=== PATIENT | female | born 1955 | race Caucasian/White ===

== ENCOUNTER 2020-07-12 17:44 | Outpatient (CLI) | payer BC, SELFPAY | END 2020-07-12 17:45 | disposition home or self-care (01) | LOC: CHSLAB 17:47 | PROVIDERS: PCP Internal Medicine; Visit Provider Specialist | DX: C44.319 Basal cell carcinoma of skin of other parts of face (principal) | CPT/HCPCS: 88305 ==

== ENCOUNTER 2020-09-14 09:38 | Outpatient (CLI) | payer BC, SELFPAY ==
--- NOTE | ~2020-09-14 | MM_ITS ---
EXAMINATION: MM screening [facility] BI w epifanio HISTORY: Screening mammogram TECHNIQUE: Craniocaudal and mediolateral oblique 3-D tomosynthesis images were obtained and synthetic 2-D images were generated. CAD analysis was submitted and interpreted. COMPARISON: 02/04/2018, 09/21/2016 BREAST PARENCHYMAL COMPOSITION: The breasts are almost entirely fatty. FINDINGS: There is no evidence of suspicious mass, calcification, or architectural distortion to sugg est malignancy in either breast. There has been no suspicious interval change. IMPRESSION: 1. No mammographic evidence of malignancy. 2. Recommend routine screening mammography in one year. BI-RADS Category 1: Negative Reviewed, dictated and finalized at location A. NG SPREADER
== END 2020-09-14 09:39 | disposition home or self-care (01) ==
LOC: ANHIMG 09:41
PROVIDERS: PCP Internal Medicine; Visit Provider Obstetrics & Gynecology
DX: Z12.31 Encounter for screening mammogram for malignant neoplasm of breast (principal)
CPT/HCPCS: 77063; 77067

== ENCOUNTER 2021-07-31 14:55 | Outpatient (CLI) | payer BC, SELFPAY ==
[2021-07-31 15:49] LABS: Anion Gap 9 mmol/L (8-16); Blood Urea Nitrogen 15 mg/dL (7-17); Calcium 9.5 mg/dL (8.4-10.2); Carbon Dioxide 28 mmol/L (22-30); Chloride 102 mmol/L (98-107); Estimated Glomerular Filt Rate 56; Glucose 100 mg/dL (65-110); Potassium 3.8 mmol/L (3.4-5.0); Sodium 139 mmol/L (137-145)
== END 2021-07-31 14:56 | disposition home or self-care (01) ==
LOC: ANHSURGERY 15:00
PROVIDERS: Anesthesiology; PCP Internal Medicine; Visit Provider Plastic Surgery
DX: I10 Essential (primary) hypertension (principal)
CPT/HCPCS: 36415; 80048

== ENCOUNTER 2021-08-02 01:35 | Day surgery (SDC) | payer BC, SELFPAY ==
[2021-07-31 12:51] VITALS: BMI 29.2
--- NOTE | 2021-07-31 12:56 | PC.NURSE ---
Report to the Outpatient Waiting Room, entrance under the green pavilion located off [facility], at time _0600 on date __08/02/21 . OR Time: 729 . - You and your visitor will be asked a series of questions to screen for COVID 19 for your protection. - A mask is required within the hospital. - Only one visitor is allowed at this time. Patient visitors will be guided where to wait when not with patient. Preoperative COVID Testing Requirements: No COVID Test needed if: (proof is required; if not received patient will have Rapid Test prior to entry) - Patient has received COVID Vaccine at least 14 days prior to procedure date or - Patient has positive COVID test result within last 90 days of surgery date. COVID Test needed if above criteria is not met If not COVID vaccinated a COVID test must be conducted within 72 hours of surgery and patient is asked to isolate self from time of testing until procedure. You will go to the [facility] [facility] for your COVID testing. The [facility] [employer] [facility] site is located at the corner of [address] from [facility]. You will only be called if COVID results are positive and your surgeon may reschedule your elective surgery date. Patients may have clear liquids (water, carbonated beverages, clear teas, apple juice) until 3 hours prior to surgery with a maximum of 20 ounces. - No food from midnight until time of surgery - Infants may have breast milk until 4 hours before surgery, infant formula 6 hours prior to surgery. - Children will be allowed to drink immediately following surgery. If applicable, please bring a bottle or sippy cup to assist with drinking. Juice, water, soda, and popsicles are readily available. For infants on formula, please bring formula the day of surgery. Pacifiers are allowed. Take the following medications with a SIP of water the morning of surgery: ____SERTRALINE Medications to discontinue per physician _ALL VITAMINS AND SUPPLEMENTS 3 DAYS PRE OP Date to take last dose Please no make-up, nail maori, hairspray, perfume, deodorant, or body powder the day of surgery. No jewelry (including any body piercings) or valuables the day of surgery, leave them at home. Please take a shower or bath the night before, or the morning of, surgery with an antibacterial soap. Wear comfortable, loose fitting clothing. Children are encouraged to wear pajamas. - Jewelry must be removed prior to entering the operating room. Rings and piercings that are not removed may be cut off. - The hospital will not accept responsibility for valuables. - Please leave all valuables, including medications, at home the day of surgery. If you are going home after surgery, a licensed regional company hazmat tanker driver must drive you home. - NO public transportation without another adult. - We recommend that an adult stay with you for 24 hours following discharge. - We also recommend that you do not drive, make important decision, drink alcoholic beverages, or take any drugs that were not prescribed by your health care provider for at least 24 hours after your discharge time. For Pediatric surgeries, we recommend two adults accompany the child home (only one inside the building at this time). Follow any additional instructions given to you from your surgeon. Telephone instructions given to __PATIENT and asked if any additional questions and then verbalized understanding. Patient advised to call surgeon office or pre surgery nurse liaison [phone] if any additional questions.
[2021-08-02 06:37] VITALS: BP 136/68; PULSE 55; RESP 16; TEMP 36.6; O2SAT 100
[2021-08-02] MEDS: LACTATED RINGERS 1,000 ML 30 ML IV CONT (06:49)
--- NOTE | 2021-08-02 06:55 | WPDANESEPPF ---
Anes - Initial Pre Proc Eval Procedure: Operation Date: 08/02/21 07:30 Proposed Procedures p Right Open Carpal Tunnel Release, - Darron Mcintosh MD s Excision Cyst Right Zygoma - Darron Mcintosh MD Date/Time: 08/02/21 06:55 Surgeon: Darron Mcintosh MD Pre Op Diagnosis: right carpal tunnel syndrome,cyst rt zygoma Patient Data Age: 66 Gender: F Height: 1.6 m Weight: 75.5 kg Last Vital Signs Temp 36.6 C 08/02/21 06:37 Pulse 55 L 08/02/21 06:37 Resp 16 08/02/21 06:37 BP 136/68 08/02/21 06:37 Pulse Ox 100 08/02/21 06:37 Allergies Allergy/AdvReac Type Severity Reaction Status Date / Time ampicillin Allergy Mild Rash Verified 08/02/21 06:27 cephalexin Allergy Mild Rash Verified 08/02/21 06:27 hepatitis B virus vaccine Allergy Mild Rash Verified 08/02/21 06:27 Home Medications Medication Instructions Recorded Confirmed Type albuterol sulfate 90 mcg/actuation 2 inh INHALATION Q4-6H PRN #18 g 11/25/20 08/02/21 Rx aerosol inhaler cyanocobalamin (vitamin B-12) See Rx Instructions .ROUTE 02/16/21 08/02/21 Rx 1,000 mcg/mL injection solution .COMPLEX #1 milliliter ergocalciferol (vitamin D2) 1,250 50,000 unit PO WEEKLY #13 cap 03/10/21 08/02/21 Rx mcg (50,000 unit) capsule sertraline 25 mg tablet 25 mg PO DAILY #90 tablet 04/23/21 08/02/21 Rx atorvastatin 20 mg tablet 20 mg PO DAILY #90 tablet 05/26/21 08/02/21 Rx bisoprolol 10 1 tablet PO DAILY #30 tablet 05/26/21 08/02/21 Rx mg-hydrochlorothiazide 6.25 mg tablet needle (disp) 25 gauge 25 gauge x #30 each 07/19/21 Rx 1 1/2 Patient hx anesthesia problems: none Family hx anesthesia problems: none Results Review: All pre-operative results and documents have been reviewed as part of the pre-operative evaluation. [facility] Past Medical History Medical History (Updated 03/14/21 @ 16:20 by Edwin Mcelroy MD) High cholesterol Hypertension Surgical History Surgical History H/O basal cell carcinoma excision History of section Family History Family History Sibling Hypertension Father Patient's father is Diabetes mellitus Family history of hypercholesterolemia Hypertension Cerebrovascular accident Social History Social History Smoking packs per day: 1 Smoking cigarettes per day: 20.0 Years smoked: 9 Smoking pack-years: 9.00 Smoking status: Former smoker Tobacco type: cigarettes Second hand tobacco smoke exposure: No Smoking end date: 08/12/81 Alcohol intake: current Drinks per week: 6 Substance use: never Living arrangements: with family Spiritual care concerns: No Anes - Eval Final PreProcedure Day of Procedure 08/02/21 06:55 Patient weight: obese Heart: regular rate and rhythm Lungs: clear to auscultation Airway: Mallampati scale class II Neurological: alert and oriented Last oral intake: >/= 8 hours ASA classification: II Emergent: no Anesthetic plan: proceed Anesthesia type and monitoring: general GIVS and standard monitoring Results Review: All pre-operative results and documents have been reviewed as part of the pre-operative evaluation. Informed Consent: The patient's anesthetic plan and its attendant risks and benefits were discussed with the patient/family/POA. Questions were solicited and answers provided to the satisfaction of the patient/family/POA.
--- NOTE | 2021-08-02 07:17 | WPDHPUPDATE1 ---
History and Physical Update Update Date/Time: 08/02/21 07:17 History and Physical has been reviewed, including an updated exam of the patient. There are NO changes in the patient's condition. Risks, benefits, and alternatives have been discussed and questions answered. Patient agrees to proceed with procedure.
[2021-08-02] MEDS: LIDO 1%/EPINEPHRINE 1:100,000 50 ML VIAL 30 ML INFILTRATE (08:10)
[2021-08-02] MEDS: BACITRACIN OINTMENT 15 GM TUBE 1 APPLIC TOPICAL (08:11)
[2021-08-02] MEDS: BALANCED SALT SOLN OPHTH IRRIG 30 ML BTL RIGHT EYE (08:15)
[2021-08-02 08:22] VITALS: BP 147/77; PULSE 65; RESP 10; O2SAT 93
--- NOTE | 2021-08-02 08:39 | W.PM.PROC2 ---
Procedure Note - Detailed Date of Procedure 08/02/21 Pre-op Diagnosis right carpal tunnel syndrome,cyst rt zygoma Post-op Diagnosis other (R Carpal Tunnel Syndrome. Subcutaneous mass of the right zygoma.) Procedure Performed Right open carpal tunnel release. 1.5 cm excision of subcutaneous mass of the right zygoma with intermediate repair 2 cm Surgeon Darron Mcintosh MD Anesthesia MAC Findings The firm multilobulated subcutaneous mass from right zygoma was sent for permanent section Description of Procedure The 2 sites were marked on the patient as she waited in the holding area. She was taken to the operating room and placed supine on the operating table. The right upper extremity was prepped on the hand table.The face was also prepped and draped in usual fashion. Patient was given IV sedation. Time-out was held and confirmed. Two sites were locally infiltrated with 1% lidocaine with epinephrine. The tourniquet was utilized to 250 mmHg. The incision was made as marked and dissection was carried bluntly through the subcutaneous tissue to the palmar aponeurosis. This and the the transverse retinaculum was incised with the 15 blade opening the canal. Under 3 point retraction the ligament was divided distally and proximally for complete release of the canal. No unusual anatomy was noted. The skin was closed with interrupted 5 0 nylon suture. A small bandage applied as usual and the tourniquet was released after 8 minutes. Attention was turned to right cheek. This area was carefully examined and by bimanual compression I located what appeared to be a dermal attachment perhaps a punctum. The incision was marked around that. This area was excised through a an oval incision. The subcutaneous mass was identified. It did not appear to be cystic. It appeared somewhat silvery and multi lobulated without obvious lumen. The specimen was taken out with 2 paddles of skin and in 4 separate pieces. All were sent to pathology same specimen bottle. No additional undermining was done. There was no significant bleeding. The wound was closed with intradermal 4-0 Vicryl sutures. The skin was closed with a running 6 0 nylon tolerated well antibiotic ointment was applied. Patient was discharged from the operating room and being discharged home after brief recovery she has a prescription for hydrocodone 5/325 7.. She has instructions in wound care and follow-up Estimated Blood Loss 2 Tourniquet Time 8 Drains No Packing No Pathology yes Complications No immediate complications Condition stable Disposition same day
[2021-08-02 08:45] VITALS: BP 155/85; PULSE 60; RESP 20
[2021-08-02 08:50] VITALS: BP 166/77; PULSE 64; RESP 20
[2021-08-02 09:15] VITALS: BP 168/80; PULSE 62; RESP 20
[2021-08-02 09:45] VITALS: BP 160/80; PULSE 66; RESP 20
== END 2021-08-02 10:04 | disposition home or self-care (01) ==
PROVIDERS: PCP Internal Medicine; Visit Provider Plastic Surgery
PROC: (CPT 64721; principal; 2021-08-02 07:30)
PROC: (CPT 64721; 2021-08-02 07:30)
DX: G56.01 Carpal tunnel syndrome, right upper limb (principal); C4A.39 Merkel cell carcinoma of other parts of face; I10 Essential (primary) hypertension; E78.00 Pure hypercholesterolemia, unspecified; Z79.51 Long term (current) use of inhaled steroids; Z87.891 Personal history of nicotine dependence; E66.9 Obesity, unspecified; Z68.29 Body mass index [BMI] 29.0-29.9, adult
CPT/HCPCS: 64721; 11642; 12051; 88304; 88305; 88342; A9270; J2250; J2405; J2704; J3010; J7120

== ENCOUNTER 2021-09-18 10:27 | Outpatient (CLI) | payer BC, SELFPAY ==
--- NOTE | ~2021-09-18 | MR_ITS ---
EXAMINATION: MR brain/brain stem wo/w con DATE: 09/18/2021 11:43 INDICATION: Ayana cell carcinoma of right cheek. TECHNIQUE: Magnetic resonance imaging (MRI) of the brain and brainstem was performed without and with 14 mL MultiHance intravenous contrast. Sequences included sagittal and axial T1-weighted FSE, axial diffusion-weighted FS EPI, axial T2*-weighted GRE, axial T2-weighted FLAIR Propeller, and axial T2-we ighted Propeller. Postcontrast sequences included axial and coronal T1-weighted FSE. Apparent diffusi on coefficient (ADC) maps were created. COMPARISON: None. FINDINGS: There is no intracranial hemorrhage or acute infarction. There is a 6 mm blush of contrast enhancement in inferior right frontal lobe. This area demonstrates normal signal intensity on other s equences. There is a developmental venous anomaly in left frontal lobe. The ventricles are normal in size. The paranasal sinuses are clear. The orbits are normal. The mastoid air cells are normal. There are surgical changes of right cheek. IMPRESSION: 1. 6 mm blush of contrast enhancement in inferior right frontal lobe. This finding may be a developme ntal venous anomaly or less likely metastatic disease. Reviewed, dictated and finalized at location E. MECHANIC IMPRESSION: 1. 6 mm blush of contrast enhancement in inferior right frontal lobe. This find ing may be a developmental venous anomaly or less likely metastatic disease.
[2021-09-18 11:14] LABS: Estimated Glomerular Filt Rate > 60
== END 2021-09-18 10:28 | disposition home or self-care (01) ==
PROVIDERS: PCP Internal Medicine; Visit Provider Otolaryngology
DX: C4A.9 Merkel cell carcinoma, unspecified (principal)
CPT/HCPCS: 70553; A9577

== ENCOUNTER 2022-10-19 09:53 | Outpatient (CLI) | payer MEDICARE, SELFPAY ==
[2022-10-19 11:13] LABS: Influenza A QL RT-PCR Negative (Negative); Influenza B QL RT-PCR Negative (Negative); RSV RNA, RT-PCR Negative (Negative); SARS-CoV-2 RNA PCR Negative
== END 2022-10-19 09:54 | disposition home or self-care (01) ==
LOC: ANHLAB 09:56
PROVIDERS: PCP Internal Medicine; Visit Provider Internal Medicine
DX: R50.9 Fever, unspecified (principal); Z20.822 Contact with and (suspected) exposure to COVID-19
CPT/HCPCS: 87637

== ENCOUNTER 2023-02-26 14:58 | Outpatient (CLI) | payer MEDICARE, SELFPAY | END 2023-02-26 14:59 | disposition home or self-care (01) | LOC: CHSLAB 15:01 | PROVIDERS: PCP Internal Medicine; Visit Provider Specialist | DX: C44.529 Squamous cell carcinoma of skin of other part of trunk (principal) | CPT/HCPCS: 88305 ==

== ENCOUNTER 2023-04-09 12:48 | Outpatient (CLI) | payer MEDICARE, SELFPAY | END 2023-04-09 12:49 | disposition home or self-care (01) | PROVIDERS: PCP Internal Medicine; Visit Provider Specialist | DX: L98.9 Disorder of the skin and subcutaneous tissue, unspecified (principal) | CPT/HCPCS: 88305 ==

== ENCOUNTER 2023-09-27 06:41 | Day surgery (SDC) | payer MEDICARE, SELFPAY ==
[2023-09-04 10:28] VITALS: BMI 29.2
--- NOTE | 2023-09-25 14:38 | SUR.PREOP ---
Patient called regarding upcoming procedure. Reviewed preop instructions, appointment times, and procedure prep.
--- NOTE | 2023-09-26 13:38 | PM.HPGS ---
History of Present Illness History of Present Illness Consent: Risks, benefits, and alternatives have been discussed and questions answered. Patient agrees to proceed with procedure. Chief complaint: neoplasm screening Narrative: Malinda Lynn is a 68 year old female Referred for colon cancer screening. Her last colonoscopy was 12 years ago. [facility] Past Medical History Medical History High cholesterol Hypertension Personal history of Ayana cell carcinoma Right carpal tunnel syndrome Vitamin B12 deficiency anemia, unspecified Vitamin D deficiency, unspecified Surgical History Surgical History H/O basal cell carcinoma excision [place] Cell removed from right cheek History of section Family History Family History Sibling Hypertension Father Patient's father is Diabetes mellitus Family history of hypercholesterolemia Hypertension Cerebrovascular accident Social History Social History Smoking packs per day: 1 Smoking cigarettes per day: 20.0 Years smoked: 9 Smoking pack-years: 9.00 Smoking status: Former smoker Tobacco type: cigarettes Second hand tobacco smoke exposure: No Smoking end date: 08/12/81 Alcohol intake: current Drinks per week: 3 Substance use: never Substance use type: does not use Lack of Transportation: No Lack of Food: Never True Current Housing: I Have Housing Concerned About Future Housing: No Difficulty Paying Gas/Electric Bills: No Difficulty Paying for Meds: No Currently Unemployed: No Education: Master's Degree or Higher Difficulty w/ Childcare or Family Care: No Living arrangements: with family Spiritual care concerns: No Meds Home Medications and Allergies Home Medications Medication Instructions Recorded Confirmed Type needle (disp) 25 gauge 25 gauge x #30 ea 07/19/21 09/25/23 Rx 1 1/2 (BD Regular Bevel [place]) albuterol sulfate 90 mcg/actuation 2 inh inhalation Q4-6H PRN 12/01/21 09/25/23 Rx aerosol inhaler (ProAir HFA) shortness of breath or wheezing #18 grams ergocalciferol (vitamin D2) 1,250 50,000 unit PO WEEKLY #13 caps 07/24/22 09/25/23 Rx mcg (50,000 unit) capsule cyanocobalamin (vitamin B-12) See Rx Instructions .Route 07/02/23 09/25/23 Rx 1,000 mcg/mL injection solution .COMPLEX #1 mL sertraline 25 mg tablet (Zoloft) 25 mg PO DAILY #90 tabs 08/13/23 09/25/23 Rx bisoprolol 10 1 tablet PO DAILY #90 tabs 09/09/23 09/25/23 Rx mg-hydrochlorothiazide 6.25 mg tablet atorvastatin 20 mg tablet 20 mg PO DAILY #90 tabs 09/26/23 Rx Allergies Allergy/AdvReac Type Severity Reaction Status Date / Time ampicillin Allergy Mild Rash Verified 09/27/23 08:40 cephalexin Allergy Mild Rash Verified 09/27/23 08:40 hepatitis B virus vaccine Allergy Mild Rash Verified 09/27/23 08:40 Assessment and Plan Assessment and plan (1) Colon cancer screening: Code(s): Z12.11 - Encounter for screening for malignant neoplasm of colon Status: Acute Assessment and Plan: Colonoscopy with possible biopsy or polypectomy or cautery or injection of substances.
[2023-09-27 08:41] VITALS: BP 124/88; PULSE 77; RESP 18; TEMP 36.2; O2SAT 97
[2023-09-27] MEDS: LACTATED RINGERS 1,000 ML 150 ML IV CONT (08:50)
--- NOTE | 2023-09-27 09:42 | WPDANESEPPF ---
Anes - Initial Pre Proc Eval Procedure: Operation Date: 09/27/23 10:00 Proposed Procedures p Screening Colonoscopy - Telly Medina MD Date/Time: 09/27/23 09:42 Surgeon: Telly Medina MD Pre Op Diagnosis: neoplasm screening Patient Data Age: 68 Gender: F Height: 1.6 m Weight: 73 kg Last Vital Signs Temp 97.2 F L 09/27/23 08:41 Pulse 77 09/27/23 08:41 Resp 18 09/27/23 08:41 BP 124/88 09/27/23 08:41 Pulse Ox 97 09/27/23 08:41 O2 Del Method Room Air 09/27/23 08:41 Allergies Allergy/AdvReac Type Severity Reaction Status Date / Time ampicillin Allergy Mild Rash Verified 09/27/23 08:40 cephalexin Allergy Mild Rash Verified 09/27/23 08:40 hepatitis B virus vaccine Allergy Mild Rash Verified 09/27/23 08:40 Home Medications Medication Instructions Recorded Confirmed Type needle (disp) 25 gauge 25 gauge x #30 ea 07/19/21 09/25/23 Rx 1 1/2 (BD Regular Bevel [place]) albuterol sulfate 90 mcg/actuation 2 inh inhalation Q4-6H PRN 12/01/21 09/25/23 Rx aerosol inhaler (ProAir HFA) shortness of breath or wheezing #18 grams ergocalciferol (vitamin D2) 1,250 50,000 unit PO WEEKLY #13 caps 07/24/22 09/25/23 Rx mcg (50,000 unit) capsule cyanocobalamin (vitamin B-12) See Rx Instructions .Route 07/02/23 09/25/23 Rx 1,000 mcg/mL injection solution .COMPLEX #1 mL sertraline 25 mg tablet (Zoloft) 25 mg PO DAILY #90 tabs 08/13/23 09/25/23 Rx bisoprolol 10 1 tablet PO DAILY #90 tabs 09/09/23 09/25/23 Rx mg-hydrochlorothiazide 6.25 mg tablet atorvastatin 20 mg tablet 20 mg PO DAILY #90 tabs 09/26/23 Rx Patient hx anesthesia problems: none Family hx anesthesia problems: none Results Review: All pre-operative results and documents have been reviewed as part of the pre-operative evaluation. [facility] Past Medical History Medical History High cholesterol Hypertension Personal history of Ayana cell carcinoma Right carpal tunnel syndrome Vitamin B12 deficiency anemia, unspecified Vitamin D deficiency, unspecified Surgical History Surgical History H/O basal cell carcinoma excision Ayana Cell removed from right cheek History of section Family History Family History Sibling Hypertension Father Patient's father is Diabetes mellitus Family history of hypercholesterolemia Hypertension Cerebrovascular accident Social History Social History Smoking packs per day: 1 Smoking cigarettes per day: 20.0 Years smoked: 9 Smoking pack-years: 9.00 Smoking status: Former smoker Tobacco type: cigarettes Second hand tobacco smoke exposure: No Smoking end date: 08/12/81 Alcohol intake: current Drinks per week: 3 Substance use: never Substance use type: does not use Lack of Transportation: No Lack of Food: Never True Current Housing: I Have Housing Concerned About Future Housing: No Difficulty Paying Gas/Electric Bills: No Difficulty Paying for Meds: No Currently Unemployed: No Education: Master's Degree or Higher Difficulty w/ Childcare or Family Care: No Living arrangements: with family Spiritual care concerns: No Anes - Eval Final PreProcedure Day of Procedure 09/27/23 09:42 Patient weight: normal Heart: regular rate and rhythm Lungs: clear to auscultation Airway: Mallampati scale class II Neurological: alert and oriented Last oral intake: >/= 8 hours ASA classification: III Emergent: no Anesthetic plan: proceed Anesthesia type and monitoring: general GIVS and standard monitoring Results Review: All pre-operative results and documents have been reviewed as part of the pre-operative evaluation. Informed Consent: The patient's anesthetic plan and its attendant risks and benefits we
[2023-09-27 10:04] VITALS: BP 109/56; PULSE 65; RESP 22; O2SAT 97
[2023-09-27 10:14] VITALS: BP 110/66; PULSE 57; RESP 14; O2SAT 97
[2023-09-27 10:24] VITALS: BP 116/66; PULSE 60; RESP 16; O2SAT 99
== END 2023-09-27 10:39 | disposition home or self-care (01) ==
PROVIDERS: PCP Internal Medicine; Visit Provider Internal Medicine Gastroenterology
PROC: 0DJD8ZZ Inspection of Lower Intestinal Tract, Via Natural or Artificial Opening Endoscopic (ICD-10-PCS; CPT 45378; principal; 2023-09-27 10:00)
DX: Z12.11 Encounter for screening for malignant neoplasm of colon (principal); K57.30 Diverticulosis of large intestine without perforation or abscess without bleeding; K64.8 Other hemorrhoids; E78.00 Pure hypercholesterolemia, unspecified; I10 Essential (primary) hypertension; E53.8 Deficiency of other specified B group vitamins; E55.9 Vitamin D deficiency, unspecified; Z87.891 Personal history of nicotine dependence
CPT/HCPCS: G0121; J2704; J7120

== ENCOUNTER 2024-02-25 13:32 | Outpatient (CLI) | payer MEDICARE, SELFPAY ==
--- NOTE | ~2024-02-25 | DEXA_ITS ---
Bone Density Report Name: LEONIDAS LR Age: 68 Sex: Female Ethnicity: White Date of : 1955 Indication: postmenopausal; screening for osteoporosis; parental hip fracture; height loss; cancer; Referring Provider: Maxime Mills Study: Bone densitometry was performed. Exam Date: February 25, 2024 Accession number: [id number] Bone Density: Region BMD T-score Z-score Classification AP Spine(L1-L4) 1.279 2.1 4.0 Normal Femoral Neck (Left) 0.803 -0.4 1.2 Normal Total Hip (Left) 0.904 -0.3 1.0 Normal Femoral Neck (Right) 0.846 0.0 1.6 Normal Total Hip (Right) 0.974 0.3 1.6 Normal Femoral Neck Mean 0.824 -0.2 1.4 Normal Total Hip Mean 0.939 0.0 1.3 Normal World Health Organization criteria for BMD impression classify patients as: Normal (T-score at or above -1.0), Osteopenia (T-score between -1.0 and -2.5), or Osteoporosis (T-score at or below -2.5). 10-year Fracture Risk: FRAX not reported because: All T-scores for Spine Total, Hip Total, Femoral Neck at or above -1.0 Clinical Information Provided by Patient: Parent has had a hip fracture Has used the following medications: Vitamin D Has the following medical conditions: Cancer Patient maximum height was 63 Menopause Age: 54 Onset of menses at age 14 Number of children 2 Impression: The patient has normal bone mass. The patient has risk factors, including: parental hip fracture. Discussion: BONE DENSITY IS ABOVE THE MINIMUM DESIRABLE LEVEL AT ALL SKELETAL SITES TESTED. This patient?s bone mineral density is above the minimum desirable level (T-score -1.0 or better) at all sites measured. The patient should follow a healthful lifestyle (good nutrition with adequate calcium and vitamin D, and appropriate weight-bearing exercise). Follow-Up: Consider repeating this study in 5 years or sooner if there is some new clinical indication. Reported by: Dr. Jack Rush on 02/25/2024 2:02:00 PM. Reviewed, dictated and finalized at location [facility]
== END 2024-02-25 13:33 | disposition home or self-care (01) ==
PROVIDERS: PCP Internal Medicine; Visit Provider Obstetrics & Gynecology
DX: Z78.0 Asymptomatic menopausal state (principal)
CPT/HCPCS: 77080